=== PATIENT | female | born 1990 | race Caucasian/White ===

== ENCOUNTER 2016-09-20 08:56 | Day surgery (SDC) | payer OTHER ==
[2016-09-14 18:04] VITALS: BMI 32.5
[~2016-09-20 08:56] MED LIST: DEXAMETHASONE SOD PHOSPHATE 10 MG/ML 1 ML VIAL IV ONE; HEPARIN SODIUM,PORCINE 5,000 UNIT/ML 1 ML VIAL SQ ONE; HYDROmorphone 1 MG/ML 1 ML SYRINGE IVP PRN; LACTATED RINGERS 1,000 ML IV SCH; LIDOCAINE 1% 20 ML VIAL (10MG/ML) FOR IV START INTRADERMA PRN; MIDAZOLAM 2 MG/2 ML VIAL IV PRN; ONDANSETRON 4 MG/2 ML VIAL IVP ONE; SCOPOLAMINE 1.5MG/72HR PATCH TRANSDERM ONE; ceFAZolin 2 GM in SODIUM CHLORIDE 0.9% 100 ML IVPB ONE
[2016-09-20] MEDS ORDERED: LACTATED RINGERS 1,000 ML IV ONE (09:34)
--- NOTE | 2016-09-20 10:11 | P.GSHP ---
History of Present Illness H&P Date: 09/20/16 Chief Complaint: Right upper quadrant pain This a 26-year-old female for from Dr. Yoan Cowart. Patient presents today for laparoscopic cholecystectomy. Patient had complaints of epigastric and right upper quadrant abdominal pain. Her recent workup shows evidence of cholelithiasis. Past Medical History Past Medical History: Asthma Additional Past Medical History / Comment(s): GALLBLADDER DISORDER History of Any Multi-Drug Resistant Organisms: None Reported Past Surgical History: No Surgical Hx Reported Past Anesthesia/Blood Transfusion Reactions: No Reported Reaction Past Psychological History: ADD/ADHD Smoking Status: Former smoker Past Alcohol Use History: Occasional Additional Past Alcohol Use History / Comment(s): QUIT SMOKING 2011 Past Drug Use History: None Reported - Past Family History Father Family Medical History: No Reported History Medications and Allergies Home Medications Medication Instructions Recorded Confirmed Type Control 1 each PO DAILY 09/14/16 History Allergies Allergy/AdvReac Type Severity Reaction Status Date / Time No Known Allergies Allergy Verified 09/14/16 17:55 Surgical - Exam Vital Signs Temp Pulse Resp BP Pulse Ox 98.0 F 63 18 111/81 98 09/20/16 09:23 09/20/16 09:23 09/20/16 09:23 09/20/16 09:23 09/20/16 09:23 - General well developed, no distress - Eyes PERRL - ENT normal pinna - Neck no masses - Respiratory normal expansion - Cardiovascular Rhythm: regular - Abdomen Abdomen: soft, tender (Mild right upper quadrant pain) Assessment and Plan Plan: Cholelithiasis Chronic low size We'll perform laparoscopic cholecystectomy
[2016-09-20] MEDS ORDERED: GLYCOPYRROLATE 0.2 MG/ML 2 ML VIAL ONE (10:32)
[2016-09-20] MEDS ORDERED: LIDOCAINE 1% INJ 10MG/ML (20 ML MDV) ONE (10:32)
[2016-09-20] MEDS ORDERED: MIDAZOLAM 2 MG/2 ML VIAL ONE (10:32)
[2016-09-20] MEDS ORDERED: SUCCINYLCHOLINE CHLORIDE 100 MG/5 ML SYR IV ONE (10:32)
[2016-09-20] MEDS ORDERED: ROCURONIUM BROMIDE 10 MG/ML 10 ML VIAL IV ONE (10:32)
[2016-09-20] MEDS ORDERED: PROPOFOL 10 MG/ML 20 ML VIAL IV ONE (10:32)
[2016-09-20] MEDS ORDERED: HYDROmorphone (PF) 1 MG/ML ONE (10:32)
[2016-09-20] MEDS ORDERED: NEOSTIGMINE 1 MG/ML 10 ML VIAL ONE (10:32)
[2016-09-20] MEDS ORDERED: BUPIVACAIN-EPI 0.25%-1:200,000 30 ML VIAL SQ ONE (10:56)
--- NOTE | 2016-09-20 11:24 | P.OP ---
Date of Procedure: 09/20/16 Preoperative Diagnosis: Cholecystitis Cholelithiasis Postoperative Diagnosis: Cholecystitis Cholelithiasis Procedure(s) Performed: Laparoscopic cholecystectomy Implants: Anesthesia: AMELIA Surgeon: Adrian Irene Estimated Blood Loss (ml): 5 Pathology: other (Gallbladder) Condition: stable Disposition: PACU Indications for Procedure: Operative Findings: Description of Procedure: HThe patient was placed on the operating table. The patient received a general endotracheal tube anesthesia. The patients abdomen was prepped and draped in the usual sterile fashion. Through an infraumbilical stab incision , the fascia of the anterior abdominal wall was grasped with a pair of Kochers and then the Veress needle was placed in the peritoneal cavity. Position of the Veress needle was confirmed with positive drop test. The abdomen was then insufflated. After adequate insufflation, the 10 mm trocar was placed in the peritoneal cavity. Following this the laparoscope was placed in the peritoneal cavity. The patient was placed in the head-up, right side up position and then a 5 mm trocar was placed in the right lateral and right subcostal position under direct visualization. A 8 mm trocar was placed in the epigastric position. The gallbladder was grasped in the fundus and infundibulum. Traction on the gallbladder was placed in the lateral and the cephalad positions. The triangle of Calot was visualized.. The cystic duct was bluntly dissected until the union of the cystic duct and common bile duct was seen. The cystic duct was then divided and sealed with the Harmonic scissors. A PDS Endoloop was then placed throughout the cystic duct stump. The cystic artery divided and sealed with the Harmonic scissors. The gallbladder was then removed from the liver bed using Harmonic scissors. The gallbladder was then extracted through the epigastric port site. Operative field was checked for any bleeding spots and Harmonic scissors was used to coagulate the liver bed. The abdomen was irrigated. The trocars were removed. The skin was closed using interrupted 3-0 Vicryl suture. Dermabond dressing were applied. The patient tolerated the procedure well.
[2016-09-20 11:32] VITALS: TEMP 98.1
[2016-09-20] MEDS ORDERED: KETOROLAC 30 MG/ML 1 ML VIAL IVP ONE (11:41)
[2016-09-20 12:31] VITALS: RESP 18
[2016-09-20 12:51] VITALS: BP 110/75; PULSE 58
== END 2016-09-20 13:07 | disposition home or self-care (01) ==
LOC: OR 08:56
PROVIDERS: ATTEND Surgery
DX: K80.10 Calculus of gallbladder with chronic cholecystitis without obstruction (principal); K21.9 Gastro-esophageal reflux disease without esophagitis; Z79.899 Other long term (current) drug therapy; Z79.3 Long term (current) use of hormonal contraceptives; Z87.891 Personal history of nicotine dependence
CPT/HCPCS: 81025; 88304; 47562; J2250; J1644; J1100; J2710; J0690; J2405; J2001; J1885; J1170; J0330; J2704

== ENCOUNTER → 2018-02-04 | Outpatient (CLI) | payer OTHER ==
--- NOTE | 2018-02-04 11:43 | US ---
EXAMINATION TYPE: US OB <= 14 wk twins DATE OF EXAM: 02/04/2018 COMPARISON: NONE CLINICAL HISTORY: Z36 Confirm dates. EXAM PERFORMED: EXAM MEASUREMENTS: GESTATIONAL AGE / DATING Physician Established: Not yet established Dates by LMP: (9 weeks/6 days) EDC: 09/03/18 Dates by First Scan: No previous this is first scan Dates by Current Scan for Baby A: (9 weeks/4 days ) EDC: 09/05/18 Dates by Current Scan for Baby B: (9 weeks/4 days) EDC: 09/05/18 MATERNAL ANATOMY Uterus: 12. 8 x 8.0 x 9.2cm Right Ovary: 2.1 x 1.3 x 1.3cm Left Ovary: 2.6 x 1.9 x 1.9cm Post CDS / Adnexa: wnl Presence of free fluid: no Presence of two separate gestational sacs: yes GESTATION / SURVEY TWIN A CRL: 2.7cm (9wks/4days) Yolk Sac (normal less than 6mm): 4mm Heart Rate: 166 bpm Rhythm: Normal IUP: Viable IUP TWIN B CRL: 2.7 (9wks/4days) Yolk Sac (normal less than 6mm): 3mm Heart Rate: 173 bpm Rhythm: Normal IUP: Viable IUP Date of LMP: 11/27/17 Beta HcG (if available): Not available at this time Twin Live intrauterine dichorionic diamniotic gestation is identified as two gestation sacs, yolk sac s, and poles are identified. No free fluid is seen in pelvic cul-de-sac. Both ovaries are seen without suspicious extraovarian adnexal lesion seen. IMPRESSION: As above, twin live intrauterine gestation is confirmed.
== END | disposition home or self-care (01) ==
LOC: RADUSWWP 09:48
PROVIDERS: ATTEND Obstetrics & Gynecology
DX: Z36.9 Encounter for antenatal screening, unspecified (principal)
CPT/HCPCS: 76801; 76802

== ENCOUNTER 2018-02-17 19:24 | Emergency (ER) | payer OTHER ==
[2018-02-17 19:30] VITALS: RESP 18
--- NOTE | 2018-02-17 20:01 | ED ---
General Adult HPI - General Source: patient, RN notes reviewed Mode of arrival: ambulatory Limitations: no limitations <Jeremy Godfrey P - Last Filed: 02/18/18 01:40> <Jessica Issa P - Last Filed: 02/18/18 02:44> - General Chief complaint: Vaginal Bleeding Stated complaint: fall/vaginal bleeding/11.5 wks preg Time Seen by Provider: 02/17/18 19:35 - History of Present Illness Initial comments: 27-year-old female 11 weeks with twins presents to the emergency department for a chief complaint of vaginal bleeding times one day. Patient states she slipped and fell in the shower today on her left side. Patient states she has had vaginal bleeding since that time. She states that initially she did have heavy vaginal bleeding which subsided. Patient states she is now having spotting. Patient states she has pain on her left side and left upper quadrant. She states she is concerned about her . She denies any lower abdominal pain.Patient has no other complaints at this time including shortness of breath, chest pain, abdominal pain, nausea or vomiting, headache, or visual changes. (Jeremy Godfrey) - Related Data Home Medications Medication Instructions Recorded Confirmed Albuterol Inhaler [Ventolin Hfa 1 - 2 puff INHALATION RT-Q6H PRN 02/17/18 Inhaler] Pnv,Calcium 72/Iron/Folic Acid 1 tab PO DAILY 02/17/18 02/17/18 [ Plus Tablet] Allergies Allergy/AdvReac Type Severity Reaction Status Date / Time No Known Allergies Allergy Verified 02/17/18 20:02 Review of Systems ROS Other: All systems not noted in ROS Statement are negative. <Jeremy Godfrey P - Last Filed: 02/18/18 01:40> ROS Other: All systems not noted in ROS Statement are negative. <Jessica Issa P - Last Filed: 02/18/18 02:44> ROS Statement: Those systems with pertinent positive or pertinent negative responses have been documented in the HPI. Past Medical History Past Medical History: Asthma Additional Past Medical History / Comment(s): GALLBLADDER DISORDER History of Any Multi-Drug Resistant Organisms: None Reported Past Surgical History: Cholecystectomy Past Anesthesia/Blood Transfusion Reactions: No Reported Reaction Past Psychological History: ADD/ADHD Smoking Status: Current every day smoker Past Alcohol Use History: None Reported Past Drug Use History: None Reported - Past Family History Father Family Medical History: No Reported History <Jeremy Godfrey P - Last Filed: 02/18/18 01:40> General Exam Limitations: no limitations General appearance: alert, in no apparent distress Head exam: Present: atraumatic, normocephalic, normal inspection Eye exam: Present: normal appearance, PERRL, EOMI. Absent: scleral icterus, conjunctival injection, periorbital swelling ENT exam: Present: normal exam, mucous membranes moist Neck exam: Present: normal inspection, full ROM. Absent: tenderness, meningismus, lymphadenopathy Respiratory exam: Present: normal lung sounds bilaterally. Absent: respiratory distress, wheezes, rales, rhonchi, stridor Cardiovascular Exam: Present: regular rate, normal rhythm, normal heart sounds. Absent: systolic murmur, diastolic murmur, rubs, gallop, clicks GI/Abdominal exam: Present: soft, normal bowel sounds. Absent: distended, tenderness (No tenderness noted on exam including in lower abdomen or left upper quadrant.), guarding, rebound, rigid Back exam: Absent: tenderness (No cervical, thoracic, or lumbar tenderness.) Neurological exam: Present: alert, oriented X3, CN II-XII intact Psychiatric exam: Present: normal affect, normal mood <Jeremy Godfrey P - Last Filed: 02/18/18 01:40> Vital Signs 02/17/18 02/17/18 19:28 22:03 Temperature 98.8 F 97.6 F Pulse Rate 105 H 81 Respiratory 18 18 Rate Blood Pressure 100/69 110/81 O2 Sat by Pulse 99 97 Oximetry Medical Decision Making - Lab Data Result diagrams: 02/17/18 19:40 02/17/18 19:40 <Jeremy Godfrey P - Last Filed: 02/18/18 01:40> - Lab Data Result diagrams: 02/17/18 19:40 02/17/18 19:40 <Jessica Issa P - Last Filed: 02/18/18 02:44> - Medical Decision Making 27-year-old female who is currently 11 weeks with twin presents to the emergency department for a chief complaint of vaginal bleeding times one day. Patient apparently fell in the shower today and has had left side pain and bleeding since that time. No abdominal tenderness on exam. Patient states pain is in the left side and left upper quadrant however is not tender to palpation. Ultrasound of the left upper quadrant was performed which showed no evidence of traumatic injury of the left kidney or spleen. No free fluid. Ultrasound transvaginal showed a viable twin gestation with a 1.2 cm hypoechoic area likely subchorionic hemorrhage. CBC and CMP are unremarkable. Vitals are stable. Patient is A- and was given RhoGAM in the emergency Department. Patient states she is ready to go home. Patient will repeat beta hCG in 2 days and follow-up with her [facility]INE[facility] in 2 days. Patient states she does have an appointment on Saturday. She will return if she has any worsening symptoms whatsoever. (Jeremy Godfrey) I was available for consultation in the emergency department. The history and physical exam were done by the midlevel provider. I was consulted for this patient's care. I reviewed the case with the midlevel provider and based on their presentation of the patient, I agree with the assessment, medical decision making and plan of care as documented. (Jessica Issa) - Lab Data Lab Results 02/17/18 02/17/18 02/17/18 Range/Units 19:40 19:40 19:40 WBC 9.9 (3.8-10.6) k/uL RBC 4.42 (3.80-5.40) m/uL Hgb 13.8 (11.4-16.0) gm/dL Hct 40.5 (34.0-46.0) % MCV 91.7 (80.0-100.0) fL MCH 31.3 (25.0-35.0) pg MCHC 34.2 (31.0-37.0) g/dL RDW 13.0 (11.5-15.5) % Plt Count 178 (150-450) k/uL Neutrophils % 74 % Lymphocytes % 19 % Monocytes % 4 % Eosinophils % 2 % Basophils % 0 % Neutrophils # 7.3 (1.3-7.7) k/uL Lymphocytes # 1.9 (1.0-4.8) k/uL Monocytes # 0.4 (0-1.0) k/uL Eosinophils # 0.2 (0-0.7) k/uL Basophils # 0.0 (0-0.2) k/uL Sodium 134 L (137-145) mmol/L Potassium 4.1 (3.5-5.1) mmol/L Chloride 105 (98-107) mmol/L Carbon Dioxide 23 (22-30) mmol/L Anion Gap 6 mmol/L BUN 12 (7-17) mg/dL Creatinine 0.57 (0.52-1.04) mg/dL Est GFR (CKD-EPI)AfAm >90 (>60 ml/min/1.73 sqM) Est GFR (CKD-EPI)NonAf >90 (>60 ml/min/1.73 sqM) Glucose 88 (74-99) mg/dL Calcium 9.2 (8.4-10.2) mg/dL Total Bilirubin 0.5 (0.2-1.3) mg/dL AST 24 (14-36) U/L ALT 26 (9-52) U/L Alkaline Phosphatase 95 (38-126) U/L Total Protein 6.8 (6.3-8.2) g/dL Albumin 3.6 (3.5-5.0) g/dL HCG, Quant 890272.0 mIU/mL Blood Type A Negative Blood Type Recheck No Antibody Screen 02/17/18 Range/Units 19:40 WBC (3.8-10.6) k/uL RBC (3.80-5.40) m/uL Hgb (11.4-16.0) gm/dL Hct (34.0-46.0) % MCV (80.0-100.0) fL MCH (25.0-35.0) pg MCHC (31.0-37.0) g/dL RDW (11.5-15.5) % Plt Count (150-450) k/uL Neutrophils % % Lymphocytes % % Monocytes % % Eosinophils % % Basophils % % Neutrophils # (1.3-7.7) k/uL Lymphocytes # (1.0-4.8) k/uL Monocytes # (0-1.0) k/uL Eosinophils # (0-0.7) k/uL Basophils # (0-0.2) k/uL Sodium (137-145) mmol/L Potassium (3.5-5.1) mmol/L Chloride (98-107) mmol/L Carbon Dioxide (22-30) mmol/L Anion Gap mmol/L BUN (7-17) mg/dL Creatinine (0.52-1.04) mg/dL Est GFR (CKD-EPI)AfAm (>60 ml/min/1.73 sqM) Est GFR (CKD-EPI)NonAf (>60 ml/min/1.73 sqM) Glucose (74-99) mg/dL Calcium (8.4-10.2) mg/dL Total Bilirubin (0.2-1.3) mg/dL AST (14-36) U/L ALT (9-52) U/L Alkaline Phosphatase (38-126) U/L Total Protein (6.3-8.2) g/dL Albumin (3.5-5.0) g/dL HCG, Quant mIU/mL Blood Type Blood Type Recheck Antibody Screen NEGATIVE Disposition Is patient prescribed a controlled substance at d/c from ED?: No Time of Disposition: 23:03 <Jeremy Godfrey P - Last Filed: 02/18/18 01:40> <Jessica Issa P - Last Filed: 02/18/18 02:44> Clinical Impression: Subchorionic hemorrhage Disposition: HOME SELF-CARE Condition: Good Instructions: Subchorionic Hemorrhage (ED) Additional Instructions: Please have blood work repeated in 2 days. Please follow-up with [facility] at your appointment on Saturday. Please return immediately to the emergency department if you have any worsening symptoms. Referrals: Yoan Vazquez MD [Primary Care Provider] - 1-2 days
[2018-02-17 20:08] LABS: Basophils % (A) 0 %; Eosinophils # (A) 0.2 k/uL (0-0.7); Eosinophils % (A) 2 %; HCT 40.5 % (34.0-46.0); HGB 13.8 gm/dL (11.4-16.0); Lymphocytes # (A) 1.9 k/uL (1.0-4.8); Lymphocytes % (A) 19 %; MCH 31.3 pg (25.0-35.0); MCHC 34.2 g/dL (31.0-37.0); MCV 91.7 fL (80.0-100.0); Mean Platelet Volume 8.1; Monocytes # (A) 0.4 k/uL (0-1.0); Monocytes % (A) 4 %; Neutrophils # (A) 7.3 k/uL (1.3-7.7); Neutrophils % (A) 74 %; Platelet Count 178 k/uL (150-450); RBC 4.42 m/uL (3.80-5.40); WBC 9.9 k/uL (3.8-10.6)
[2018-02-17 20:17] LABS: ALT 26 U/L (9-52); AST 24 U/L (14-36); Albumin 3.6 g/dL (3.5-5.0); Alkaline Phosphatase 95 U/L (38-126); Anion Gap 6 mmol/L; Blood Urea Nitrogen 12 mg/dL (7-17); Calcium 9.2 mg/dL (8.4-10.2); Carbon Dioxide 23 mmol/L (22-30); Chloride 105 mmol/L (98-107); Glucose 88 mg/dL (74-99); Potassium 4.1 mmol/L (3.5-5.1); Sodium 134 mmol/L (137-145); Total Bilirubin 0.5 mg/dL (0.2-1.3); Total Protein 6.8 g/dL (6.3-8.2)
--- NOTE | 2018-02-17 21:09 | US ---
EXAMINATION TYPE: US abdomen limited DATE OF EXAM: 02/17/2018 COMPARISON: NONE CLINICAL HISTORY: Pain. Patient fell in the shower today, LUQ pain since EXAM MEASUREMENTS: Spleen: 11.1cm Left Kidney: 11.1 x 4.8 x 4.1cm 1. Spleen: granulomas noted 2. Left Kidney: no evidence of hydronephrosis IMPRESSION: No evidence of traumatic injury of the left kidney and the spleen. No free fluid.
--- NOTE | 2018-02-17 21:12 | US ---
EXAMINATION TYPE: US OB <= 14 wk twins DATE OF EXAM: 02/17/2018 COMPARISON: NONE CLINICAL HISTORY: Pain. Patient fell in the shower today, vaginal bleeding since EXAM PERFORMED: Transabdominal (TA) EXAM MEASUREMENTS: GESTATIONAL AGE / DATING Physician Established: Not yet established Dates by LMP: (11 weeks/5 days) EDC: 09/03/18 Dates by First Scan: (11 weeks/3 days) EDC: 09/05/18 Dates by Current Scan for Baby A: (12 weeks/0 days) EDC: 09/01/18 Dates by Current Scan for Baby B: (12 weeks/0 days) EDC: 09/01/18 MATERNAL ANATOMY Uterus: 13.1 x 8.1 x 9.6cm Right Ovary: 3.3 x 1.3 x 2.4cm Left Ovary: 3.2 x 1.5 x 3.0cm Post CDS / Adnexa: wnl Presence of free fluid: no Presence of subchorionic bleed: yes, hypoechoic area inferior to GS = 4.2cm Presence of two separate gestational sacs: yes GESTATION / SURVEY TWIN A CRL: 5.4cm (12wks/0days) Yolk Sac (normal less than 6mm): 0.5cm Heart Rate: 171 bpm Rhythm: Normal IUP: Viable IUP TWIN B CRL: 5.3cm (12wks/0days) Yolk Sac (normal less than 6mm): 0.3cm Heart Rate: 167 bpm Rhythm: Normal IUP: Viable IUP Date of LMP: 11/27/17 Beta HcG (if available): Not available at this time Viable twin gestation. subchorionic bleed inferior to GS IMPRESSION: Performed by 1.2 cm hypoechoic area could be subchorionic hemorrhage. Dichorionic diamniotic twin gestation. There is a thick septum the gestational sacs.
[2018-02-17 22:04] VITALS: BP 110/81; PULSE 81; TEMP 97.6
[2018-02-17] MEDS ORDERED: Rhogam IMMUNE GLOBULIN 1,500 UNIT/1 ML IM ONE (22:05)
== END 2018-02-17 23:33 | disposition home or self-care (01) ==
LOC: EC 19:24
DX: O20.8 Other hemorrhage in early pregnancy (principal); Z67.11 Type A blood, Rh negative; O99.511 Diseases of the respiratory system complicating pregnancy, first trimester; J45.909 Unspecified asthma, uncomplicated; O99.331 Smoking (tobacco) complicating pregnancy, first trimester; F17.200 Nicotine dependence, unspecified, uncomplicated; Z90.49 Acquired absence of other specified parts of digestive tract; Z3A.11 11 weeks gestation of pregnancy; W18.2XXA Fall in (into) shower or empty bathtub, initial encounter
CPT/HCPCS: 36415; 86900; 86901; 80053; 85025; 86850; 84702; 76705; 76801; 76802; 99284; 96372; 90384; J2791

== ENCOUNTER 2018-02-25 16:26 | Emergency (ER) | payer OTHER ==
[2018-02-25 16:29] VITALS: RESP 18
[2018-02-25] MEDS ORDERED: SODIUM CHLORIDE 0.9% 1,000 ML IV ONE (16:39)
--- NOTE | 2018-02-25 17:04 | ED ---
Female Urogenital HPI - General Chief complaint: Vaginal Bleeding Stated complaint: 13 WEEKS PREG/TWINS, BLEEDING Time Seen by Provider: 02/25/18 16:38 Source: patient Mode of arrival: ambulatory Limitations: no limitations - History of Present Illness Initial comments: 27yo female A1 who presents today for chief complaint of vaginal bleeding. Patient states that last Saturday she, shower and began experiencing vaginal bleeding shortly after. Patient presents emergency department for evaluation revealed a subchorionic hemorrhage. Patient was given Rhogam at that time. Patient was seen for follow-up last Saturday with her PRESCHOOL TEACHER Dr. Chavis, who has been monitoring the subchorionic hemorrhage and beta hCG. Patient stated the bleeding subsided for the past couple days. However today patient began experiencing she called her PRESCHOOL TEACHER who told her coronary department for evaluation. Patient does admit to some mild lower abdominal cramping. Patient denies any urgency, frequency, dysuria, hematuria, upper abdominal pain, nausea, vomiting, diarrhea, chest pain, shorts breath, lower extremity edema or any other associated symptoms. Upon arrival patient's vital signs stable. Patient appears well. Patient does not appear to be in acute distress. - Related Data Home Medications Medication Instructions Recorded Confirmed Albuterol Inhaler [Ventolin Hfa 1 - 2 puff INHALATION RT-Q6H PRN 02/17/18 Inhaler] Pnv,Calcium 72/Iron/Folic Acid 1 tab PO DAILY 02/17/18 02/25/18 [ Plus Tablet] Allergies Allergy/AdvReac Type Severity Reaction Status Date / Time No Known Allergies Allergy Verified 02/25/18 16:37 Review of Systems ROS Statement: Those systems with pertinent positive or pertinent negative responses have been documented in the HPI. ROS Other: All systems not noted in ROS Statement are negative. Past Medical History Past Medical History: Asthma Additional Past Medical History / Comment(s): GALLBLADDER DISORDER History of Any Multi-Drug Resistant Organisms: None Reported Past Surgical History: Cholecystectomy Past Anesthesia/Blood Transfusion Reactions: No Reported Reaction Past Psychological History: ADD/ADHD Smoking Status: Current every day smoker Past Alcohol Use History: None Reported Past Drug Use History: None Reported - Past Family History Father Family Medical History: No Reported History General Exam - General Exam Comments Initial Comments: General: The patient is awake and alert, in no distress, and does not appear acutely ill. Eye: Pupils are equal, round and reactive to light, extra-ocular movements are intact. No nystagmus. There is normal conjunctiva bilaterally. No signs of icterus. Ears, nose, mouth and throat: There are moist mucous membranes and no oral lesions. Neck: The neck is supple, there is no tenderness or JVD. Cardiovascular: There is a regular rate and rhythm. No murmur, rub or gallop is appreciated. Respiratory: Lungs are clear to auscultation, respirations are non-labored, breath sounds are equal. No wheezes, stridor, rales, or rhonchi. Gastrointestinal: No noted diaphoresis, jaundice, pallor, protecting postures or squirming. Symmetrical pigmentation of abdomen without signs of inflammation, scars, or striae. Umbilicus mildline, inverted without swelling. No dilated veins. No noted abdominal distention. No visible masses. No peristalsis, aortic pulsations , or ventral hernia. Bowel sounds audible in all 4 quadrants, unremarkable. No friction rubs or venous hums. No epigastic, hepatic or abdominal bruits. No tenderness to light or deep palpation of the abdomen or pelvic region. Liver edge, not palpable. Spleen edge, right and left kidney not palpable. Superior bladder margin non-tender. Special Testing: Negative [place], Rovsing, McBurney, Ellis, cutaneous hyperesthesia. Iliopsoas and obturator tests negative bilaterally. Negative Heel Jar test. Digital rectal exam deferred. Negative liu turners or cullens sign. See pelvic exam. Musculoskeletal: Normal ROM, no tenderness. Strength 5/5. Sensation intact. DP pulses equal bilaterally 2+. Neurological: A&O x 3. CN II-XII intact, There are no obvious motor or sensory deficits. Coordination appears grossly intact. Speech is normal. Skin: Skin is warm and dry and no rashes or lesions are noted. Psychiatric: Cooperative, appropriate mood & affect, normal judgment. Limitations: no limitations External exam: Present: normal external exam. Absent: erythema, swelling, lesions, lacerations Speculum exam: Present: vaginal discharge, vaginal bleeding (very mild, small amount of blood in vault). Absent: erythema, cervical discharge, foreign body, tissue, laceration By manual exam: Present: normal by manual exam. Absent: cervical motion tenderness, adnexal tenderness, adnexal mass, uterine enlargement, uterine tenderness Expanded Speculum exam: Present: cervical OS closed, vaginal bleeding, vaginal discharge Course Vital Signs 02/25/18 16:26 Temperature 98.1 F Pulse Rate 80 Respiratory 18 Rate Blood Pressure 104/74 O2 Sat by Pulse 100 Oximetry Medical Decision Making - Medical Decision Making Abdominal exam unremarkable. Ultrasound revealed a twin live intrauterine gestation, there is a moderate sized subchorionic hemorrhage inferior to the gestational sac there remains present but not significantly changed in size from recent ultrasound. There is no free fluid or masses of adnexa. Baby A measuring 12 weeks 6 days heart rate 170. BP 13 weeks 1 day with heart rate of 159bpm. Speculum exam revealed a closed os, there are some vaginal discharge and mild vaginal bleeding. There is no adnexa tenderness, or masses palpated. Vaginal cultures were obtained, we'll hold off on antibiotic use until cultures return. Did not appear to be consistent with yeast infection or BV at this time , no vaginal odor. Urinalysis unremarkable. No signs of urinary tract infection at this time. Laboratory studies as noted above, no concerning findings. Patient received RhoGam last week, upon chart review. Pt A-. Case discussed in detail Dr. Matute at this time feel patient is stable for discharge in the vaginal bleeding is most likely due to subchorionic hemorrhage. We recommend repeat ultrasound studies as well as serial beta hCGs. Patient was recommended to follow up with Dr. Chavis her PRESCHOOL TEACHER in 1-2 days. All findings were discussed in detail patient who verbalized understanding. Patient did not questions at this time. Patient was discharged in stable condition, return parameters discussed in detail. Patient verbalized understanding. - Lab Data Result diagrams: 02/25/18 17:18 02/25/18 17:18 Lab Results 02/25/18 02/25/18 02/25/18 Range/Units 17:18 17:18 17:18 WBC 8.3 (3.8-10.6) k/uL RBC 4.29 (3.80-5.40) m/uL Hgb 13.6 (11.4-16.0) gm/dL Hct 39.3 (34.0-46.0) % MCV 91.5 (80.0-100.0) fL MCH 31.7 (25.0-35.0) pg MCHC 34.6 (31.0-37.0) g/dL RDW 12.9 (11.5-15.5) % Plt Count 183 (150-450) k/uL Neutrophils % 70 % Lymphocytes % 21 % Monocytes % 5 % Eosinophils % 3 % Basophils % 0 % Neutrophils # 5.8 (1.3-7.7) k/uL Lymphocytes # 1.7 (1.0-4.8) k/uL Monocytes # 0.4 (0-1.0) k/uL Eosinophils # 0.2 (0-0.7) k/uL Basophils # 0.0 (0-0.2) k/uL Sodium 136 L (137-145) mmol/L Potassium 4.2 (3.5-5.1) mmol/L Chloride 102 (98-107) mmol/L Carbon Dioxide 27 (22-30) mmol/L Anion Gap 7 mmol/L BUN 12 (7-17) mg/dL Creatinine 0.51 L (0.52-1.04) mg/dL Est GFR (CKD-EPI)AfAm >90 (>60 ml/min/1.73 sqM) Est GFR (CKD-EPI)NonAf >90 (>60 ml/min/1.73 sqM) Glucose 85 (74-99) mg/dL Calcium 9.0 (8.4-10.2) mg/dL Total Bilirubin 0.2 (0.2-1.3) mg/dL AST 24 (14-36) U/L ALT 32 (9-52) U/L Alkaline Phosphatase 84 (38-126) U/L Total Protein 6.6 (6.3-8.2) g/dL Albumin 3.4 L (3.5-5.0) g/dL HCG, Quant 555554.0 mIU/mL Urine Color Urine Appearance (Clear) Urine pH (5.0-8.0) Ur Specific [place] (1.001-1.035) Urine Protein (Negative) Urine Glucose (UA) (Negative) Urine Ketones (Negative) Urine Blood (Negative) Urine Nitrite (Negative) Urine Bilirubin (Negative) Urine Urobilinogen (<2.0) mg/dL Ur Leukocyte Esterase (Negative) Urine RBC (0-5) /hpf Urine WBC (0-5) /hpf Ur Squamous Epith Cells (0-4) /hpf Urine Mucus (None) /hpf Urine HCG, Qual (Not Detectd) Blood Type A Negative Blood Type Recheck No 02/25/18 02/25/18 Range/Units 17:18 17:18 WBC (3.8-10.6) k/uL RBC (3.80-5.40) m/uL Hgb (11.4-16.0) gm/dL Hct (34.0-46.0) % MCV (80.0-100.0) fL MCH (25.0-35.0) pg MCHC (31.0-37.0) g/dL RDW (11.5-15.5) % Plt Count (150-450) k/uL Neutrophils % % Lymphocytes % % Monocytes % % Eosinophils % % Basophils % % Neutrophils # (1.3-7.7) k/uL Lymphocytes # (1.0-4.8) k/uL Monocytes # (0-1.0) k/uL Eosinophils # (0-0.7) k/uL Basophils # (0-0.2) k/uL Sodium (137-145) mmol/L Potassium (3.5-5.1) mmol/L Chloride (98-107) mmol/L Carbon Dioxide (22-30) mmol/L Anion Gap mmol/L BUN (7-17) mg/dL Creatinine (0.52-1.04) mg/dL Est GFR (CKD-EPI)AfAm (>60 ml/min/1.73 sqM) Est GFR (CKD-EPI)NonAf (>60 ml/min/1.73 sqM) Glucose (74-99) mg/dL Calcium (8.4-10.2) mg/dL Total Bilirubin (0.2-1.3) mg/dL AST (14-36) U/L ALT (9-52) U/L Alkaline Phosphatase (38-126) U/L Total Protein (6.3-8.2) g/dL Albumin (3.5-5.0) g/dL HCG, Quant mIU/mL Urine Color Light Yellow Urine Appearance Clear (Clear) Urine pH 6.5 (5.0-8.0) Ur Specific [place] 1.014 (1.001-1.035) Urine Protein Negative (Negative) Urine Glucose (UA) Negative (Negative) Urine Ketones Negative (Negative) Urine Blood Trace H (Negative) Urine Nitrite Negative (Negative) Urine Bilirubin Negative (Negative) Urine Urobilinogen <2.0 (<2.0) mg/dL Ur Leukocyte Esterase Negative (Negative) Urine RBC 1 (0-5) /hpf Urine WBC 1 (0-5) /hpf Ur Squamous Epith Cells 1 (0-4) /hpf Urine Mucus Rare H (None) /hpf Urine HCG, Qual Detected (Not Detectd) Blood Type Blood Type Recheck Disposition Clinical Impression: Subchorionic hematoma in first trimester Disposition: HOME SELF-CARE Condition: Good Instructions: Subchorionic Hemorrhage (ED) Additional Instructions: Please follow-up with OBGN in next 1-2 days for ultrasounds and beta HCG quant. Please return to emergency room if the symptoms increase or worsen or for any other concerns, as discussed. Is patient prescribed a controlled substance at d/c from ED?: No Referrals: Yoan Vazquez MD [Primary Care Provider] - 1-2 days Pascale Chavis DO [Doctor of Osteopathic Medicine] - 1-2 days Time of Disposition: 18:35
[2018-02-25 17:37] LABS: Basophils % (A) 0 %; Eosinophils # (A) 0.2 k/uL (0-0.7); Eosinophils % (A) 3 %; HCT 39.3 % (34.0-46.0); HGB 13.6 gm/dL (11.4-16.0); Lymphocytes # (A) 1.7 k/uL (1.0-4.8); Lymphocytes % (A) 21 %; MCH 31.7 pg (25.0-35.0); MCHC 34.6 g/dL (31.0-37.0); MCV 91.5 fL (80.0-100.0); Mean Platelet Volume 8.4; Monocytes # (A) 0.4 k/uL (0-1.0); Monocytes % (A) 5 %; Neutrophils # (A) 5.8 k/uL (1.3-7.7); Neutrophils % (A) 70 %; Platelet Count 183 k/uL (150-450); RBC 4.29 m/uL (3.80-5.40); RDW 12.9 % (11.5-15.5); WBC 8.3 k/uL (3.8-10.6)
[2018-02-25 17:41] LABS: Appearance,Urine Clear (Clear); Bilirubin,Urine Negative (Negative); Blood,Urine Trace (Negative); Color,Urine Light Yellow; Glucose,Urine (UA) Negative (Negative); Ketones,Urine Negative (Negative); Leukocyte Esterase,Urine Negative (Negative); Mucus,Urine Rare /hpf; Nitrite,Urine Negative (Negative); PH, Urine 6.5 (5.0-8.0); Protein,Urine Negative (Negative); RBC,Urine 1 /hpf (0-5); Specific Gravity,Urine 1.014 (1.001-1.035); Squamous Epithelial Cell,Urine 1 /hpf (0-4); Urobilinogen,Urine <2.0 mg/dL (<2.0)
[2018-02-25 17:49] LABS: ALT 32 U/L (9-52); AST 24 U/L (14-36); Albumin 3.4 g/dL (3.5-5.0); Alkaline Phosphatase 84 U/L (38-126); Anion Gap 7 mmol/L; Blood Urea Nitrogen 12 mg/dL (7-17); Carbon Dioxide 27 mmol/L (22-30); Chloride 102 mmol/L (98-107); Glucose 85 mg/dL (74-99); Potassium 4.2 mmol/L (3.5-5.1); Sodium 136 mmol/L (137-145); Total Bilirubin 0.2 mg/dL (0.2-1.3); Total Protein 6.6 g/dL (6.3-8.2)
--- NOTE | 2018-02-25 18:26 | US ---
EXAMINATION TYPE: US OB <= 14 wk twins DATE OF EXAM: 02/25/2018 COMPARISON: US 8 days ago CLINICAL HISTORY: pain. History of subchorionic bleed, bleeding last week that ended 5 days ago, new onset of bleeding and pelvic pain x 1 day, 3, para 1, ectopic 1 EXAM PERFORMED: Transabdominal (TA) EXAM MEASUREMENTS: GESTATIONAL AGE / DATING Physician Established: (12 weeks/2 days) EDC: 09/07/2018 Dates by LMP: (12 weeks/6 days) EDC: 09/03/2018 Dates by First Scan: (12 weeks/4 days) EDC: 09/05/2018 Dates by Current Scan for Baby A: (12 weeks/6 days) EDC: 09/03/2018 Dates by Current Scan for Baby B: (13 weeks/1 days) EDC: 09/01/2018 MATERNAL ANATOMY Uterus: 15.4 x 6.3 x 13.2cm, anteverted Right Ovary: 2.5 x 1.9 x 1.7cm Left Ovary: 2.4 x 2.3 x 2.1cm Post CDS / Adnexa: wnl Presence of free fluid: no Presence of corpus luteal cyst: not seen Presence of subchorionic bleed: yes, 4.7 x 1.6 x 3.4cm complex area inferior to gestational sac Presence of two separate gestational sacs: yes GESTATION / SURVEY TWIN A CRL: 6.5cm (12 wks/6 days) Yolk Sac (normal less than 6mm): not seen Heart Rate: 170 bpm Rhythm: Normal IUP: Viable IUP TWIN B CRL: 6.9cm (13 wks/1 days) Yolk Sac (normal less than 6mm): not seen Heart Rate: 159 bpm Rhythm: Normal IUP: Viable IUP Date of LMP: 11/27/2017 Beta HcG (if available): Not available at time of exam Viable twin IUP with baby A measuring 12 weeks 6 days with a heart rate of 170bpm and an estimated de livery date of 09/03/2018 and baby B measuring 13 weeks 1 day with a heart rate of 159bpm and an chelsea mated delivery date of 09/01/2018, 4.7cm subchorionic bleed. IMPRESSION: Twin live intrauterine gestation redemonstrated. Fairly moderate sized subchorionic hemorrhage inferi or to gestational sac remains present not significantly changed in size from recent ultrasound. Consi emma continued ultrasound surveillance.
[2018-02-25 19:21] VITALS: BP 110/65; PULSE 77; TEMP 98.4
[2018-02-26 16:04] LABS: N. gonorrhoeae,PCR Negative (Neg,Equiv); Neisseria Source Vagina
[2018-02-26 16:06] LABS: C. trachomatis,PCR Negative (Neg,Equiv); Chlamydia trachomatis Source Vagina
== END 2018-02-25 19:21 | disposition home or self-care (01) ==
LOC: EC 16:26
DX: O20.8 Other hemorrhage in early pregnancy (principal); O99.511 Diseases of the respiratory system complicating pregnancy, first trimester; J45.909 Unspecified asthma, uncomplicated; O99.331 Smoking (tobacco) complicating pregnancy, first trimester; F17.200 Nicotine dependence, unspecified, uncomplicated; Z90.49 Acquired absence of other specified parts of digestive tract; Z87.19 Personal history of other diseases of the digestive system; Z3A.13 13 weeks gestation of pregnancy
CPT/HCPCS: 36415; 76801; 76802; 80053; 81001; 81025; 84702; 85025; 86900; 86901; 87070; 87205; 87491; 87591; 87808; 96360; 96361; 99284

== ENCOUNTER 2018-04-11 21:12 | Emergency (ER) | payer OTHER ==
[2018-04-11 21:19] VITALS: TEMP 97.7
[2018-04-11] MEDS ORDERED: SODIUM CHLORIDE 0.9% 2,000 ML IV STA (21:27)
--- NOTE | 2018-04-11 21:42 | ED ---
General Adult HPI - General Chief complaint: Abdominal Pain Stated complaint: not feeling normal, with twins, 19 weeks Time Seen by Provider: 04/11/18 21:24 Source: patient Mode of arrival: ambulatory Limitations: no limitations - History of Present Illness Initial comments: Shani is a 27-year-old female who is only 19 weeks with a twin gestation. Patient presents the emergency department today with multiple vague complaints. Patient reports that she's been under a lot of social stress , she's not been sleeping well, due to this being a high risk she's not able to work, she also has no means of transportation, she's been unable to have her glucose tolerance test performed and has been unable to see high pressure kettle operator due to her lack of transportation. Patient reports that she hasn't been eating or drinking or sleeping well because she's been so stressed. She states that for the past 2 days she's began having some abdominal cramping similar to contractions but not nearly as intense, and she states that today she didn't feel like her babies are moving as much as usual so she came to the ER for evaluation. Patient denies any vaginal bleeding, fluid per vagina, or vaginal discharge. She denies any dysuria or urinary frequency or hematuria. She does state that she's been mildly constipated recently but attributed this to the and not eating well. Patient states she is concerned that she is dehydrated and this is bad for her babies. - Related Data Home Medications Medication Instructions Recorded Confirmed Pnv,Calcium 72/Iron/Folic Acid 1 tab PO DAILY 02/17/18 04/11/18 [ Plus Tablet] Allergies Allergy/AdvReac Type Severity Reaction Status Date / Time No Known Allergies Allergy Verified 04/11/18 21:35 Review of Systems ROS Statement: Those systems with pertinent positive or pertinent negative responses have been documented in the HPI. ROS Other: All systems not noted in ROS Statement are negative. Past Medical History Past Medical History: Asthma Additional Past Medical History / Comment(s): GALLBLADDER DISORDER History of Any Multi-Drug Resistant Organisms: None Reported Past Surgical History: Cholecystectomy Past Anesthesia/Blood Transfusion Reactions: No Reported Reaction Past Psychological History: ADD/ADHD Smoking Status: Current every day smoker Past Alcohol Use History: None Reported Past Drug Use History: None Reported - Past Family History Father Family Medical History: No Reported History General Exam - General Exam Comments Initial Comments: Physical Exam GENERAL: Patient is well-developed and well-nourished. Patient was gravid abdomen HENT: Normocephalic, Atraumatic. Because membranes are dry, patient does appear dehydrated EYES: PERRL, EOMI PULMONARY: Unlabored respirations. No audible rales rhonchi or wheezing was noted. CARDIOVASCULAR: There is a regular rate and rhythm without any murmurs gallops or rubs. ABDOMEN: Soft and nontender with normal bowel sounds. Gravid uterus SKIN: Skin is clear with no lesions or rashes and otherwise unremarkable. : Deferred NEUROLOGIC: Patient is alert and oriented x3. Moving all extremities spontaneously MUSCULOSKELETAL: Normal extremities with adequate strength and full range of motion. No lower extremity swelling or edema. No calf tenderness. PSYCHIATRIC: Normal psychiatric evaluation. Limitations: no limitations Limitations: no limitations Course Vital Signs 04/11/18 04/12/18 21:13 01:35 Temperature 97.7 F Pulse Rate 86 74 Respiratory 17 16 Rate Blood Pressure 103/68 104/71 O2 Sat by Pulse 98 99 Oximetry Medical Decision Making - Medical Decision Making The patient was seen and evaluated, history was obtained from the patient Patient currently 19 weeks gestation with twins, patient has been under a lot of stress, not eating, drinking or sleeping well, patient concerned about decreased movement Bedside ultrasound reveals a twin gestation, both twins are active, heart rate for age twin is in the 130s to 140s on ultrasound. Patient felt very reassured after being able to see the twins on ultrasound. Labs and IV fluid resuscitation were ordered Labs no significant abnormalities Patient was reevaluated after IV fluid resuscitation. Patient reports feeling significantly better and very reassured because she was able to see her twins on ultrasound. Patient is to follow-up with her OB Dr. Butterfield later this week and return parameters were discussed all questions pertaining care were answered patient was discharged home in stable condition. - Lab Data Result diagrams: 04/11/18 21:45 04/11/18 21:49 Lab Results 04/11/18 04/11/18 04/12/18 Range/Units 21:45 21:49 00:10 WBC 11.6 H (3.8-10.6) k/uL RBC 3.92 (3.80-5.40) m/uL Hgb 12.4 (11.4-16.0) gm/dL Hct 36.7 (34.0-46.0) % MCV 93.7 (80.0-100.0) fL MCH 31.6 (25.0-35.0) pg MCHC 33.8 (31.0-37.0) g/dL RDW 13.8 (11.5-15.5) % Plt Count 168 (150-450) k/uL Neutrophils % 72 % Lymphocytes % 19 % Monocytes % 5 % Eosinophils % 3 % Basophils % 0 % Neutrophils # 8.3 H (1.3-7.7) k/uL Lymphocytes # 2.2 (1.0-4.8) k/uL Monocytes # 0.6 (0-1.0) k/uL Eosinophils # 0.3 (0-0.7) k/uL Basophils # 0.0 (0-0.2) k/uL Sodium 135 L (137-145) mmol/L Potassium 3.8 (3.5-5.1) mmol/L Chloride 104 (98-107) mmol/L Carbon Dioxide 24 (22-30) mmol/L Anion Gap 7 mmol/L BUN 11 (7-17) mg/dL Creatinine 0.46 L (0.52-1.04) mg/dL Est GFR (CKD-EPI)AfAm >90 (>60 ml/min/1.73 sqM) Est GFR (CKD-EPI)NonAf >90 (>60 ml/min/1.73 sqM) Glucose 87 (74-99) mg/dL Calcium 8.6 (8.4-10.2) mg/dL Total Bilirubin 0.2 (0.2-1.3) mg/dL AST 25 (14-36) U/L ALT 37 (9-52) U/L Alkaline Phosphatase 94 (38-126) U/L Total Protein 6.1 L (6.3-8.2) g/dL Albumin 3.1 L (3.5-5.0) g/dL Amylase 63 (30-110) U/L Lipase 63 (23-300) U/L Urine Color Colorless Urine Appearance Clear (Clear) Urine pH 6.0 (5.0-8.0) Ur Specific [place] 1.002 (1.001-1.035) Urine Protein Negative (Negative) Urine Glucose (UA) Negative (Negative) Urine Ketones Negative (Negative) Urine Blood Negative (Negative) Urine Nitrite Negative (Negative) Urine Bilirubin Negative (Negative) Urine Urobilinogen <2.0 (<2.0) mg/dL Ur Leukocyte Esterase Negative (Negative) Disposition Clinical Impression: , Dehydration Disposition: HOME SELF-CARE Condition: Good Instructions: (ED) Is patient prescribed a controlled substance at d/c from ED?: No Referrals: Yoan Vazquez MD [Primary Care Provider] - 1-2 days Pascale Chavis DO [Doctor of Osteopathic Medicine] - 1-2 days Time of Disposition: 01:28
[2018-04-11 22:30] LABS: Basophils % (A) 0 %; Eosinophils # (A) 0.3 k/uL (0-0.7); Eosinophils % (A) 3 %; HCT 36.7 % (34.0-46.0); HGB 12.4 gm/dL (11.4-16.0); Lymphocytes # (A) 2.2 k/uL (1.0-4.8); Lymphocytes % (A) 19 %; MCH 31.6 pg (25.0-35.0); MCHC 33.8 g/dL (31.0-37.0); MCV 93.7 fL (80.0-100.0); Mean Platelet Volume 8.3; Monocytes # (A) 0.6 k/uL (0-1.0); Monocytes % (A) 5 %; Neutrophils # (A) 8.3 k/uL (1.3-7.7); Neutrophils % (A) 72 %; Platelet Count 168 k/uL (150-450); RBC 3.92 m/uL (3.80-5.40); RDW 13.8 % (11.5-15.5); WBC 11.6 k/uL (3.8-10.6)
[2018-04-11 22:35] LABS: ALT 37 U/L (9-52); AST 25 U/L (14-36); Albumin 3.1 g/dL (3.5-5.0); Alkaline Phosphatase 94 U/L (38-126); Amylase 63 U/L (30-110); Anion Gap 7 mmol/L; Blood Urea Nitrogen 11 mg/dL (7-17); Calcium 8.6 mg/dL (8.4-10.2); Carbon Dioxide 24 mmol/L (22-30); Chloride 104 mmol/L (98-107); Glucose 87 mg/dL (74-99); Lipase 63 U/L (23-300); Potassium 3.8 mmol/L (3.5-5.1); Sodium 135 mmol/L (137-145); Total Bilirubin 0.2 mg/dL (0.2-1.3); Total Protein 6.1 g/dL (6.3-8.2)
[2018-04-12 00:35] LABS: Appearance,Urine Clear (Clear); Bilirubin,Urine Negative (Negative); Blood,Urine Negative (Negative); Color,Urine Colorless; Glucose,Urine (UA) Negative (Negative); Ketones,Urine Negative (Negative); Leukocyte Esterase,Urine Negative (Negative); Nitrite,Urine Negative (Negative); Protein,Urine Negative (Negative); Specific Gravity,Urine 1.002 (1.001-1.035); Urobilinogen,Urine <2.0 mg/dL (<2.0)
[2018-04-12 01:39] VITALS: BP 104/71; PULSE 74; RESP 16
== END 2018-04-12 01:35 | disposition home or self-care (01) ==
LOC: EC 21:12
DX: O99.282 Endocrine, nutritional and metabolic diseases complicating pregnancy, second trimester (principal); E86.0 Dehydration; O99.612 Diseases of the digestive system complicating pregnancy, second trimester; K59.00 Constipation, unspecified; O99.89 Other specified diseases and conditions complicating pregnancy, childbirth and the puerperium; R10.9 Unspecified abdominal pain; O99.332 Smoking (tobacco) complicating pregnancy, second trimester; F17.200 Nicotine dependence, unspecified, uncomplicated; Z73.3 Stress, not elsewhere classified; Z90.49 Acquired absence of other specified parts of digestive tract; Z3A.19 19 weeks gestation of pregnancy
CPT/HCPCS: 36415; 80053; 81003; 82150; 83690; 85025; 96360; 99284

== ENCOUNTER 2018-06-09 15:57 | Emergency (ER) | payer OTHER ==
[2018-06-09 15:17] LABS: Appearance,Urine Clear (Clear); Bacteria,Urine Occasional /hpf; Bilirubin,Urine Negative (Negative); Blood,Urine Negative (Negative); Color,Urine Yellow; Glucose,Urine (UA) Negative (Negative); Ketones,Urine Trace (Negative); Leukocyte Esterase,Urine Moderate (Negative); Mucus,Urine Rare /hpf; Nitrite,Urine Positive (Negative); Protein,Urine Trace (Negative); Squamous Epithelial Cell,Urine 1 /hpf (0-4); Urobilinogen,Urine <2.0 mg/dL (<2.0); WBC,Urine 46 /hpf (0-5)
[2018-06-09 16:08] VITALS: PULSE 87; RESP 18; TEMP 98.4
[2018-06-09 16:59] LABS: Basophils # (A) 0.1 k/uL (0-0.2); Basophils % (A) 0 %; Eosinophils # (A) 0.2 k/uL (0-0.7); Eosinophils % (A) 1 %; HCT 38.6 % (34.0-46.0); HGB 12.9 gm/dL (11.4-16.0); Lymphocytes # (A) 1.6 k/uL (1.0-4.8); Lymphocytes % (A) 9 %; MCHC 33.3 g/dL (31.0-37.0); MCV 93.1 fL (80.0-100.0); Mean Platelet Volume 7.4; Monocytes # (A) 0.7 k/uL (0-1.0); Monocytes % (A) 4 %; Neutrophils % (A) 85 %; Platelet Count 228 k/uL (150-450); RBC 4.15 m/uL (3.80-5.40); RDW 13.4 % (11.5-15.5); WBC 17.7 k/uL (3.8-10.6)
[2018-06-09 17:11] LABS: ALT 24 U/L (9-52); AST 31 U/L (14-36); Albumin 3.2 g/dL (3.5-5.0); Alkaline Phosphatase 204 U/L (38-126); Anion Gap 5 mmol/L; Blood Urea Nitrogen 10 mg/dL (7-17); Calcium 8.4 mg/dL (8.4-10.2); Carbon Dioxide 22 mmol/L (22-30); Chloride 106 mmol/L (98-107); Glucose 79 mg/dL (74-99); Magnesium 1.7 mg/dL (1.6-2.3); Potassium 4.5 mmol/L (3.5-5.1); Sodium 133 mmol/L (137-145); Total Bilirubin 0.7 mg/dL (0.2-1.3); Total Protein 6.4 g/dL (6.3-8.2)
[2018-06-09 17:14] LABS: INR 0.8 (<1.2); Prothrombin Time 9.3 sec (9.0-12.0)
[2018-06-09 17:18] LABS: Partial Thromboplastin Time 21.8 sec (22.0-30.0)
[2018-06-09 17:29] LABS: Creatine Kinase MB 0.2 ng/mL (0.0-2.4)
--- NOTE | 2018-06-09 17:57 | US ---
EXAMINATION TYPE: US venous doppler duplex LE DATE OF EXAM: 06/09/2018 5:38 PM COMPARISON: NONE CLINICAL HISTORY: Pain. 27 weeks leg swelling. SIDE PERFORMED: Bilateral TECHNIQUE: The lower extremity deep venous system is examined utilizing real time linear array sonog rani with graded compression, doppler sonography and color-flow sonography. VESSELS IMAGED: External Iliac Vein (EIV) Common Femoral Vein Deep Femoral Vein Greater Saphenous Vein * Femoral Vein Popliteal Vein Small Saphenous Vein * Proximal Calf Veins (* superficial vessels) FINDINGS: Grayscale, color doppler, spectral doppler imaging performed of the deep veins of the lower extremities. There is normal flow, compressibility, vascular waveforms. IMPRESSION: NEGATIVE FOR DVT, BILATERAL LOWER EXTREMITIES.
[2018-06-09] MEDS ORDERED: cefTRIAXone 1,000 MG VIAL (IM USE) IM STA (18:18)
[2018-06-09 19:13] VITALS: BP 95/47
--- NOTE | 2018-06-09 19:34 | CT ---
EXAMINATION TYPE: CT angio chest with contrast and with 3-D reconstruction renderings. DATE OF EXAM: 06/09/2018 6:59 PM COMPARISON: HISTORY: Shortness of breath. CT DLP: 311.5 mGycm Automated exposure control for dose reduction was used. CONTRAST: CTA scan of the thorax is performed with IV Contrast, patient injected with 88 mL of Isovue 370, pulmonary embolism protocol. 3-D reconstructions. FINDINGS: There is significant patient motion artifact, limiting the accuracy of the study to a moder ate degree. LUNGS AND PLEURAL SPACES AND AIRWAYS: The lungs are grossly clear, there is no concerning parenchymal mass or nodule identified. There is no acute aortic finding. No cardiomegaly or pericardial effusio n. There is no pleural effusion or pneumothorax. MEDIASTINUM: There is mild-moderate enhancement of the pulmonary artery and its branches; no definite CT evidence for pulmonary embolism. There are no greater than 1 cm hilar or mediastinal lymph nodes . No pericardial effusion is seen. OTHER: No additional significant abnormality is seen. IMPRESSION: LIMITED STUDY, BUT NO DEFINITE ACUTE PROCESS
--- NOTE | 2018-06-09 19:50 | ED ---
Chest Pain HPI <Allan Bergman - Last Filed: 06/09/18 20:13> - General Source: patient, RN/MD Mode of arrival: wheelchair Limitations: no limitations <Nikki Woo - Last Filed: 06/09/18 21:46> - General Chief Complaint: Chest Pain Stated Complaint: Chest pain-FB sent - History of Present Illness Initial Comments: 27-year-old female with no past focal history 20 weeks' presenting for chest pain rule out from family [facility]. Patient states she presented to the emergency department for evaluation of chest pain for the past 2-3 days, she states she has had occasional shortness of breath associated with the pain. She states she also has had upper respiratory symptoms including congestion and cough. Denies any fever, chills, hemoptysis or calf pain. Patient states she has had intermittent swelling of her lower extremities during this . Patient denies any facial edema. Patient states that the AB was placed on a monitor upon family birthing, they denied any abnormalities. Patient was then sent to the emergency department for further evaluation. Upon arrival patient EKG revealed no acute findings this was evaluated by attending provider . Patient denies any abdominal pain, nausea, vomiting, upper extremity paresthesias, jaw pain, back pain, vaginal bleeding, vaginal discharge, abdominal cramping. Patient states she was told mother-baby she has a urinate tract infection however denies any urgency frequency or dysuria. Remaining review of systems negative patient denies any recent , back pain, numbness or tingling, dysuria or hematuria, constipation or diarrhea, headaches or visual changes, or any other complaints. Upon arrival pt VS WNL. (Nkiki Woo) - Related Data Home Medications Medication Instructions Recorded Confirmed Pnv,Calcium 72/Iron/Folic Acid 1 tab PO DAILY 02/17/18 06/09/18 [ Plus Tablet] Albuterol Inhaler [Ventolin Hfa 2 puff INHALATION RT-QID PRN 06/09/18 06/09/18 Inhaler] Allergies Allergy/AdvReac Type Severity Reaction Status Date / Time No Known Allergies Allergy Verified 06/09/18 16:49 Review of Systems ROS Other: All systems not noted in ROS Statement are negative. <Allan Bergman - Last Filed: 06/09/18 20:13> ROS Other: All systems not noted in ROS Statement are negative. <Nikki Woo - Last Filed: 06/09/18 21:46> ROS Statement: Those systems with pertinent positive or pertinent negative responses have been documented in the HPI. EKG Findings - EKG Comments: EKG Findings:: A 12-lead EKG was performed and shows the following: Rate is 81bpm, and rhythm is normal sinus. There are normal QRS complexes and normal R- wave progression. ST segments have no elevation or depression, and [place] segments appear normal. Reviewed by Dr. bergman and myself. <Nikki Woo Alexander - Last Filed: 06/09/18 21:46> Past Medical History Past Medical History: Asthma Additional Past Medical History / Comment(s): GALLBLADDER DISORDER History of Any Multi-Drug Resistant Organisms: None Reported Past Surgical History: Cholecystectomy Past Anesthesia/Blood Transfusion Reactions: No Reported Reaction Past Psychological History: ADD/ADHD Smoking Status: Never smoker Past Alcohol Use History: None Reported Past Drug Use History: None Reported - Past Family History Father Family Medical History: No Reported History <Nikki Woo - Last Filed: 06/09/18 21:46> General Exam <Allan Bergman - Last Filed: 06/09/18 20:13> Limitations: no limitations <Nikki Woo Alexander - Last Filed: 06/09/18 21:46> - General Exam Comments Initial Comments: General: The patient is awake and alert, in no distress, and does not appear acutely ill. Eye: +3 mm pupils are equal, round and reactive to light, extra-ocular movements are intact. No nystagmus. There is normal conjunctiva bilaterally. No signs of icterus. Ears, nose, mouth and throat: There are moist mucous membranes and no oral lesions. Neck: The neck is supple, there is no tenderness or JVD. Cardiovascular: There is a regular rate and rhythm. No murmur, rub or gallop is appreciated. Respiratory: Lungs are clear to auscultation, respirations are non-labored, breath sounds are equal. No wheezes, stridor, rales, or rhonchi. Gastrointestinal: Non-tender abdomen without masses or organomegaly noted. There is no rebound or guarding present. No CVA tenderness. Bowel sounds are unremarkable. Musculoskeletal: Normal ROM, no tenderness. Strength 5/5. Sensation intact. Pulses equal bilaterally 2+. Neurological: A&O x 3. CN II-XII intact, There are no obvious motor or sensory deficits. Coordination appears grossly intact. Speech is normal. Skin: Skin is warm and dry and no rashes or lesions are noted. Negative Adithya, no lower extremity edema. No facial edema no upper extremity edema Psychiatric: Cooperative, appropriate mood & affect, normal judgment. (Nikki Woo) Vital Signs 06/09/18 06/09/18 06/09/18 14:35 16:03 19:12 Temperature 97.0 F L 98.4 F Pulse Rate 87 87 Pulse Rate [ 88 Apical] Respiratory 16 18 18 Rate Blood Pressure 118/75 95/47 Blood Pressure 115/68 [Right Arm] O2 Sat by Pulse 98 100 Oximetry Chest Pain MDM <Allan Bergman - Last Filed: 06/09/18 20:13> <Nikki Woo - Last Filed: 06/09/18 21:46> - [facility] The EKG shows a normal sinus rhythm at a rate of 81. There is no acute ST-T wave changes noted. The [place] intervals 146, QRS duration is 78, and the QTC intervals 418. (Allan Bergman) Well-appearing 27 or female. 28 weeks sent from [facility] for chest pain rule out. No significant physical examination findings, lungs clear to auscultation. EKG revealed no findings concerning for acute coronary syndrome. Troponin negative. Symptoms have been ongoing for 2-3 days, patient does admit to upper respiratory symptoms, although states they are mild. Duplex ultrasound the legs reveal no DVT. D-dimer significantly elevated. This is concerning for possible pulmonary embolism given chief complaint of chest pain with shortness of breath. Patient has risk factor of . I did discuss the risk of pulmonary embolism and consequences if left undiagnosed. Mother states she is concerned about her health and would accept CT angiography regardless of the radiation risk to her fetus. I discussed the increased risks including cancer of the fetus or . Patient states she would like to continue with imaging study, I feel this is appropriate this time given patient's complaint, and her concern for shortness of breath. CT angios was obtained revealing no findings consistent with pulmonary embolism. Patient's vital signs remained stable, patient appears well there is no evidence of pneumonia or pneumothorax on CT angiography. Patient does have mild elevation of white blood cell count as well as alk phos. I do feel the elevation of alk phos is consistent with third trimester of . Transaminases within normal limits, platelets within normal limits. Patient's blood pressure within normal limits. No evidence of edema on examination. At this time I do feel patient is stable for discharge with close [employer] follow-up and immediate return for any concerning, worsening or persistent symptoms. All return parameters were discussed at length patient who verbalized understanding. Patient is com fortable discharge. Patient discharged stable condition at appearing well. I did discuss the case throughout the course in the emergency department with my attending provider, Dr. Bergman who is agreeable with CT angiography and workup as well as patient discharge. (Nikki Woo) Disposition <Allan Bergman - Last Filed: 06/09/18 20:13> Is patient prescribed a controlled substance at d/c from ED?: No Time of Disposition: 19:50 <Nikki Woo - Last Filed: 06/09/18 21:46> Clinical Impression: Chest pain Disposition: HOME SELF-CARE Condition: Good Instructions (If sedation given, give patient instructions): Chest Pain (ED) Additional Instructions: Please use medication as discussed. Please follow-up with OBGYN in next 1-2 days, immediate return for swelling, abdominal pain, vaginal bleeding. Please return to emergency room if the symptoms increase or worsen or for any other concerns. Referrals: None,Stated [Primary Care Provider] - 1-2 days Quinten Barton DO [REFERRING] - 1-2 days
== END 2018-06-09 20:08 | disposition home or self-care (01) ==
LOC: EC 15:57
DX: O99.89 Other specified diseases and conditions complicating pregnancy, childbirth and the puerperium (principal); R07.9 Chest pain, unspecified; R79.1 Abnormal coagulation profile; O99.113 Other diseases of the blood and blood-forming organs and certain disorders involving the immune mechanism complicating pregnancy, third trimester; D72.829 Elevated white blood cell count, unspecified; R74.8 Abnormal levels of other serum enzymes; M79.89 Other specified soft tissue disorders; R06.02 Shortness of breath; R05 Cough; O99.513 Diseases of the respiratory system complicating pregnancy, third trimester; J45.909 Unspecified asthma, uncomplicated; Z3A.28 28 weeks gestation of pregnancy
CPT/HCPCS: 96372 ×2; 99285 ×2; 36415; 93005; 85379; 80053; 82550; 82553; 83735; 84484; 85025; 85610; 85730; 81001; 87086; 87077; 87186; 93970; 71275; G0463; J0696; Q9967; 99213